=== PATIENT | female | born 1980 | race Caucasian/White ===

== ENCOUNTER 2017-10-05 20:27 | Emergency (ER) | payer MEDICAID, OTHER ==
[~2017-10-05] VITALS: Ht 160 cm; Wt 83.7 kg
[2017-10-05 20:44] VITALS: BP 152/101
== END 2017-10-05 21:38 | disposition home or self-care (01) ==
LOC: ED 21:10
DX: S63.642A Sprain of metacarpophalangeal joint of left thumb, initial encounter (principal); X58.XXXA Exposure to other specified factors, initial encounter; Y93.89 Activity, other specified; Y92.009 Unspecified place in unspecified non-institutional (private) residence as the place of occurrence of the external cause; Y99.8 Other external cause status
CPT/HCPCS: 29125; 99284

== ENCOUNTER 2017-11-22 16:27 | Emergency (ER) | payer MEDICAID ==
[~2017-11-22] VITALS: Ht 162.6 cm; Wt 84.0 kg
[2017-11-22 17:53] LABS: ALANINE AMINOTRANSFERASE 113 U/L (12-78); ALBUMIN 3.7 g/dL (3.4-5.0); ANION GAP 6 mmol/L (5-15); CHLORIDE 105 mmol/L (98-107); CREATININE 0.73 mg/dL (0.55-1.02)
[2017-11-22 17:55] LABS: BASOPHILS # (AUTO) 0.05 x10^3/uL (0-0.1); BASOPHILS % (AUTO) 1 % (0-1); EOSINOPHILS # (AUTO) 0.16 x10^3/uL (0-0.4); EOSINOPHILS % (AUTO) 3 % (1-7); LYMPHOCYTES # (AUTO) 1.95 x10^3/uL (1-3.4); LYMPHOCYTES % (AUTO) 38 % (22-44); MD NO; MEAN CORPUSCULAR HEMOGLOBIN 33.6 pg (27.0-34.8); MEAN CORPUSCULAR HGB CONC 34.4 g/dL (32.4-35.8); MEAN CORPUSCULAR VOLUME 97.8 fL (80-100); MEAN PLATELET VOLUME 10.3 fL (7.4-10.4); MONOCYTES # (AUTO) 0.42 x10^3/uL (0.2-0.8); MONOCYTES % (AUTO) 8 % (2-9); NEUTROPHILS # (AUTO) 2.55 x10^3/uL (1.8-6.8); NEUTROPHILS % (AUTO) 50 % (42-75); PLATELET COUNT 171 x10^3/uL (130-400); RED BLOOD COUNT 4.18 x10^6/uL (3.82-5.3); RED CELL DISTRIBUTION WIDTH 13.7 % (9.6-15.2)
[2017-11-22 17:56] LABS: ALKALINE PHOSPHATASE 53 U/L (45-117); BILIRUBIN,TOTAL 0.3 mg/dL (0.2-1.0); TOTAL PROTEIN 7.8 g/dL (6.4-8.2)
[2017-11-22 18:03] LABS: CULTURE INDICATED? YES; MICROSCOPIC INDICATED
[2017-11-22 18:44] VITALS: BP 130/97
== END 2017-11-22 19:41 | disposition home or self-care (01) ==
LOC: ED 19:33
DX: R10.31 Right lower quadrant pain (principal)
CPT/HCPCS: 36415; 80053; 81001; 83690; 84703; 85025; 87081; 87086; 87880; 99284

== ENCOUNTER 2018-06-18 23:44 | Emergency (ER) | payer MEDICAID ==
[~2018-06-18] VITALS: Ht 162.6 cm; Wt 88.2 kg
[2018-06-18 23:48] VITALS: BP 142/93
[2018-06-19 00:08] LABS: CULTURE INDICATED? YES; MICROSCOPIC INDICATED
[2018-06-19 00:09] LABS: HCG UR SG <= 1.005 (1.003-1.030)
[2018-06-19] MEDS ORDERED: CIPROFLOXACIN 500 MG TABLET ONE (00:27)
[2018-06-19] MEDS ORDERED: PHENAZOPYRIDINE 200 MG TABLET ONE (00:27)
[2018-06-19] MEDS ORDERED: CIPROFLOXACIN 500 MG TABLET PO ONE (00:30)
[2018-06-19] MEDS ORDERED: PHENAZOPYRIDINE 200 MG TABLET PO ONE (00:30)
== END 2018-06-19 01:17 | disposition home or self-care (01) ==
LOC: ED 06-19 00:13
DX: N30.01 Acute cystitis with hematuria (principal); F17.200 Nicotine dependence, unspecified, uncomplicated
CPT/HCPCS: 81001; 81025; 87077; 87086; 87186; 99284

== ENCOUNTER 2019-03-15 12:22 | Observation (INO) | payer MEDICAID, OTHER ==
[~2019-03-15] VITALS: Ht 162.6 cm; Wt 94.0 kg
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
[2019-03-15] MEDS ORDERED: ONDANSETRON 2MG/ML, 2ML ONE ×2 (13:18→16:51)
[2019-03-15] MEDS ORDERED: MORPHINE SULFATE 4 MG/ML, 1ML ONE (13:18)
--- NOTE | 2019-03-15 13:25 | NUR ---
PT MEDICATED PER MAR FOR PAIN.
[2019-03-15] MEDS ORDERED: MORPHINE SULFATE 4 MG/ML, 1ML IVPush PRN ×3 (13:30→18:00)
[2019-03-15] MEDS ORDERED: ONDANSETRON 2MG/ML, 2ML IVPush ONE (13:30)
[2019-03-15] MEDS ORDERED: SODIUM CHLORIDE FLUSH 10ML SYR IVF ONE (13:30)
[2019-03-15] MEDS ORDERED: SODIUM CHLORIDE 0.9% 1,000ML IVBOLUS ONE (13:30)
--- NOTE | 2019-03-15 13:47 | NUR ---
PT BACK TO RM FROM XR. STATES ADEQUATE PAIN RELIEF.
[2019-03-15 13:48] LABS: MICROSCOPIC AUTO
[2019-03-15 13:50] LABS: CULTURE INDICATED? YES
[2019-03-15] MEDS ORDERED: CEFTRIAXONE PMX 1GM/50ML 50 ML IV ONE (14:30)
--- NOTE | 2019-03-15 14:37 | NUR ---
PT TO GO TO SURGERY TODAY. AWAITING TIME. PT MEDICATED PER OCT. PT STATES PAIN IS TOLERABLE AT 610. NAD NOTED, NO FURTHER NEEDS
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
[2019-03-15] MEDS ORDERED: ONDANSETRON 2MG/ML, 2ML IVPush PRN (15:30)
[2019-03-15] MEDS ORDERED: SODIUM CHLORIDE FLUSH 10ML SYR IVF PRN (15:30)
--- NOTE | 2019-03-15 15:39 | NUR ---
REPORT GIVEN TO BOARD WRITER. THEY ARE TO COME GET THE PT
[2019-03-15 16:02] LABS: BASOPHILS % (AUTO) 2 % (0-1); EOSINOPHILS # (AUTO) 0.18 x10^3/uL (0-0.4); EOSINOPHILS % (AUTO) 3 % (1-7); LYMPHOCYTES # (AUTO) 1.82 x10^3/uL (1-3.4); LYMPHOCYTES % (AUTO) 27 % (22-44); MD NO; MONOCYTES # (AUTO) 0.54 x10^3/uL (0.2-0.8); MONOCYTES % (AUTO) 8 % (2-9); NEUTROPHILS # (AUTO) 4.24 x10^3/uL (1.8-6.8); NEUTROPHILS % (AUTO) 62 % (42-75); PLATELET COUNT 158 x10^3/uL (130-400); RED CELL DISTRIBUTION WIDTH 15.2 % (9.6-15.2)
[2019-03-15 16:08] LABS: HCG UR SG 1.026 (1.003-1.030)
[2019-03-15 16:18] LABS: ALANINE AMINOTRANSFERASE 87 U/L (12-78); ALBUMIN 3.3 g/dL (3.4-5.0); ANION GAP 6 mmol/L (5-15); CALCIUM 8.3 mg/dL (8.5-10.1); CHLORIDE 113 mmol/L (98-107)
[2019-03-15 16:21] LABS: ALKALINE PHOSPHATASE 52 U/L (45-117); BILIRUBIN,TOTAL 0.2 mg/dL (0.2-1.0); CREATININE 0.74 mg/dL (0.55-1.02); TOTAL PROTEIN 6.5 g/dL (6.4-8.2)
[2019-03-15] MEDS ORDERED: FENTANYL PF 100 MCG/2ML ONE ×2 (16:47→18:50)
[2019-03-15] MEDS ORDERED: FENTANYL PF 250 MCG/5ML ONE ×2 (16:50→18:09)
[2019-03-15] MEDS ORDERED: MIDAZOLAM 1 MG/ML, 2ML ONE (16:50)
[2019-03-15] MEDS ORDERED: DEXAMETHASONE 4 MG/ML, 1ML ONE (16:51)
[2019-03-15] MEDS ORDERED: PROPOFOL 10 MG/ML, 20ML ONE (16:51)
[2019-03-15] MEDS ORDERED: GLYCOPYRROLATE 0.2MG/1ML, 5ML ONE (16:51)
[2019-03-15] MEDS ORDERED: NEOSTIGMINE 1 MG/ML, 10ML ONE (16:51)
[2019-03-15] MEDS ORDERED: CEFAZOLIN 1,000 MG ONE (16:51)
[2019-03-15] MEDS ORDERED: ROCURONIUM 10MG/ML,5ML ONE (16:51)
[2019-03-15] MEDS ORDERED: SCOPOLAMINE PATCH, 1.5MG PATCH.TD72 TD ONE (17:35)
[2019-03-15] MEDS ORDERED: PROMETHAZINE 25 MG SUPP PR PRN (18:00)
[2019-03-15] MEDS ORDERED: hydrALAzine 20 MG/ML, 1ML IV PRN (18:00)
[2019-03-15] MEDS ORDERED: MEPERIDINE/PF 25MG/0.5ML IVPush PRN (18:00)
[2019-03-15] MEDS ORDERED: PROMETHAZINE 12.5 MG SUPP PR PRN (18:00)
[2019-03-15] MEDS ORDERED: LABETALOL 5MG/ML, 20ML IV PRN (18:00)
[2019-03-15] MEDS ORDERED: PROMETHAZINE 25 MG/ML, 1ML IM PRN ×2 (18:00)
[2019-03-15] MEDS ORDERED: ONDANSETRON 2MG/ML, 2ML IV PRN ×2 (18:00→21:00)
[2019-03-15] MEDS ORDERED: ONDANSETRON ODT 8 MG PO PRN (18:00)
[2019-03-15] MEDS ORDERED: PROMETHAZINE 25 MG/ML, 1ML IV PRN (18:00)
[2019-03-15] MEDS ORDERED: ACETAMINOPHEN 325 MG TABLET PO PRN (18:00)
[2019-03-15] MEDS ORDERED: OXYcodone 5 MG/5 ML ORAL.SOL UDC PO PRN (18:00)
[2019-03-15] MEDS ORDERED: KETOROLAC 30 MG/1 ML ONE (18:23)
[2019-03-15] MEDS ORDERED: OXYcodone 5 MG/5 ML ORAL.SOL UDC ONE (18:50)
[2019-03-15] MEDS ORDERED: HYDROmorphone 2 MG/ML, 1ML ONE ×2 (18:50→19:34)
[2019-03-15] MEDS: FENTANYL PF 100 MCG/2ML IV PRN ×2 (18:55→19:01)
[2019-03-15] MEDS: HYDROmorphone 2 MG/ML, 1ML IVPush PRN ×6 (18:56→19:50)
[2019-03-15] MEDS ORDERED: CEFAZOLIN 2,000 MG in SODIUM CHLORIDE 0.9% 50 ML IV SCH (21:00)
[2019-03-15] MEDS ORDERED: HYDROcodone/APAP 10/325 MG TABLET PO PRN (21:00)
[2019-03-15] MEDS: KETOROLAC 30 MG/1 ML IV SCH (21:23)
[2019-03-15 21:41] LABS: MEAN CORPUSCULAR HEMOGLOBIN 32.9 pg (27.0-34.8); MEAN CORPUSCULAR HGB CONC 33.2 g/dL (32.4-35.8); MEAN CORPUSCULAR VOLUME 99.1 fL (80-100); MEAN PLATELET VOLUME 10.6 fL (7.4-10.4); RED BLOOD COUNT 3.86 x10^6/uL (3.82-5.3)
[2019-03-15] MEDS: OXYcodone/APAP 5/325MG TABLET PO PRN (22:38)
[2019-03-16 00:20] VITALS: BP 135/83
[2019-03-16] MEDS: HYDROmorphone 2 MG/ML, 1ML IM PRN ×2 (01:23→04:07)
[2019-03-16] MEDS: CEFAZOLIN 2,000 MG in SODIUM CHLORIDE 0.9% 50 ML IV SCH ×2 (01:24→10:21)
[2019-03-16] MEDS: OXYcodone/APAP 5/325MG TABLET PO PRN ×3 (02:36→11:42)
[2019-03-16 03:20] VITALS: BP 140/79
[2019-03-16] MEDS: KETOROLAC 30 MG/1 ML IV SCH ×2 (04:41→13:35)
[2019-03-16 08:01] VITALS: BP 125/89
[2019-03-16 14:28] VITALS: BP 110/73
[2019-03-16] MEDS ORDERED: HYDR-3240 PO (14:36)
[2019-03-16] MEDS ORDERED: NITR100C56 PO (14:36)
== END 2019-03-16 16:00 | disposition home or self-care (01) ==
LOC: ED 14:30 → EDIP 15:02 → INTOOBSV 15:02 → UNDOADMOB 15:02 → EDIP 20:25 → 4NOR 20:25 → EDIP 20:42 → DCLOUNGE 03-16 15:43 → 4NOR 03-16 15:43 → UNDODISOB 03-16 16:00
PROVIDERS: ADMIT Orthopaedic Surgery; ATTEND Orthopaedic Surgery
DX: S42.324A Nondisplaced transverse fracture of shaft of humerus, right arm, initial encounter for closed fracture (principal); N30.90 Cystitis, unspecified without hematuria; V89.2XXA Person injured in unspecified motor-vehicle accident, traffic, initial encounter; Y93.9 Activity, unspecified; Y92.410 Unspecified street and highway as the place of occurrence of the external cause
CPT/HCPCS: 24515; 36415; 73060; 76000; 80053; 81001; 81025; 85025; 87077; 87086; 87186; 96365; 96366; 96372; 96375; 96376; 99284; C1713; G0378; J0690; J0696; J1100; J1170; J1885; J2250; J2270; J2405; J2704; J2710; J3010; J7030; 96374